=== PATIENT | male | born 1995 | race Two or more races ===

== ENCOUNTER 2021-02-28 18:03 | Inpatient (IN) | payer OTHER ==
[~2021-02-28] VITALS: Ht 167.6 cm; Wt 79.7 kg
[2021-02-28 20:09] LABS: Basophils # (auto) 0 10 ^3/uL (0-0.2); Eosinophils # (auto) 0.1 10 ^3/uL (0-0.8); Hemoglobin 17.7 g/dL (13.5-17.5); Lymphocytes # (auto) 2.2 10 ^3/uL (0.4-5.4); Lymphocytes % (auto) 28.6 % (10.0-50.0); Monocytes # (auto) 0.5 10 ^3/uL (0-1.3); Neutrophils # (auto) 4.9 10 ^3/uL (1.6-8.6)
[2021-02-28 20:11] LABS: Basophils % (auto) 0.3 % (0.0-2.0); Eosinophils % (auto) 1.7 % (0.0-7.0); Hematocrit 50.2 % (41.0-53.0); Mean Corpuscular Hgb Conc. 35.2 g/dL (32.0-36.0); Mean Corpuscular Volume 82.4 fL (80.0-100.0); Monocytes % (auto) 5.9 % (0.0-12.0); Neutrophils % (auto) 63.5 % (37.0-80.0); Nucleated Red Blood Cells % 1.3 %; Red Blood Cells 6.09 10^6/uL (4.5-5.90); Red Cell Distribution Width 13.6 % (11.8-14.3); White Blood Cell 7.8 10^3/uL (4.4-10.8)
[2021-02-28 20:27] LABS: Albumin 4.7 g/dL (3.4-5.0); Calcium 9.7 mg/dL (8.5-10.1); Potassium 4.2 mmol/L (3.5-5.1)
[2021-02-28 20:30] LABS: BUN/Creatinine Ratio 12.9
[2021-02-28 20:33] LABS: Bilirubin, Total 0.5 mg/dL (0.2-1.0); Total Protein 7.8 g/dL (6.4-8.2)
[2021-03-01] MEDS ORDERED: HYDROcodone-ACET 10/325MG TAB PO ONE (02:15)
[2021-03-01 08:43] VITALS: BP 129/79
[2021-03-01] MEDS ORDERED: BUPIVACAINE 0.5% MPF INJ 30ML SDV IJ ONE (12:10)
[2021-03-01] MEDS ORDERED: ceFAZolin 1GM/50ML 100 ML IV ONE (12:27)
[2021-03-01] MEDS ORDERED: MIDAZOLAM HCL 2MG/2ML 2ml VIAL (1mg/ml) ONE (12:45)
[2021-03-01] MEDS ORDERED: MEPERIDINE HCL (50 MG/ML) 1 ML VIAL ONE (12:45)
[2021-03-01] MEDS ORDERED: fentaNYL CITRATE 100 MCG/2 ML VL ONE (12:45)
[2021-03-01 13:00] VITALS: BP 105/60
[2021-03-01] MEDS ORDERED: DexAMETHasone SOD PHOS 10MG/1ML VIAL INJ ONE (13:15)
[2021-03-01] MEDS ORDERED: PROPOFOL 10 MG/ML 20 ML IV ONE (13:15)
[2021-03-01] MEDS ORDERED: MIDAZOLAM HCL 2MG/2ML 2ml VIAL (1mg/ml) IV PRN (14:45)
[2021-03-01] MEDS ORDERED: HYDROmorphone HCL 2 MG/ML VL IV PRN (14:45)
[2021-03-01] MEDS ORDERED: ePHEDrine SULFATE 50 MG/ML AMP IV PRN (14:45)
[2021-03-01] MEDS ORDERED: MORPHINE SULFATE 4 MG/ML SYR/VIAL IV PRN (14:45)
[2021-03-01] MEDS ORDERED: LABETALOL HCL 5 MG/ML 4ML SYRINGE IV PRN (14:45)
[2021-03-01] MEDS ORDERED: ONDANSETRON HCL 4 MG/2 ML VIAL IV PRN (14:45)
[2021-03-01] MEDS ORDERED: HYDROcodone-ACET 10/325MG TAB PO PRN (16:00)
[2021-03-01 17:00] VITALS: BP 122/75
[2021-03-01 18:31] LABS: INR 1.16 (0.9-1.15)
[2021-03-01 21:22] VITALS: BP 116/71
== END 2021-03-01 22:41 | DRG 514 ==
LOC: EEVIPCON 18:06 → ER 18:06 → OVERFLOW 23:04 → CENTRAL 03-01 08:07
PROVIDERS: ADMIT Emergency Medicine; ATTEND Internal Medicine
PROC: 0PSQ04Z Reposition Left Metacarpal with Internal Fixation Device, Open Approach (ICD-10-PCS; principal; 2021-03-01 12:45)
DX: S62.305A Unspecified fracture of fourth metacarpal bone, left hand, initial encounter for closed fracture (principal); Z20.822 Contact with and (suspected) exposure to COVID-19; W18.39XA Other fall on same level, initial encounter; Y93.89 Activity, other specified; Z83.3 Family history of diabetes mellitus; Y92.89 Other specified places as the place of occurrence of the external cause; Y99.8 Other external cause status
CPT/HCPCS: 36415; 71045; 73130; 76000; 80053; 85025; 85610; 87426; G0378; J0690; J1100; J2250; J2704; J3490